=== PATIENT | male | born 2000 | race American Indian/Alaskan Native ===

== ENCOUNTER 2019-01-18 00:20 | Emergency (ER) | payer SELFPAY ==
[2019-01-18 00:39] VITALS: BP 164/80
[2019-01-18] MEDS ORDERED: DUONEB *Not for PRN Use IH ONE ×2 (00:41→00:46)
--- NOTE | 2019-01-18 01:37 | XRay Report ---
CHEST 2 VIEWS INDICATION / CLINICAL INFORMATION: Cough for 3 days. COMPARISON: None available. FINDINGS: SUPPORT DEVICES: None. HEART / MEDIASTINUM: The heart size and pulmonary vasculature are normal. LUNGS / PLEURA: No significant pulmonary or pleural abnormality. No pneumothorax. ADDITIONAL FINDINGS: No significant additional findings. IMPRESSION: No acute findings. Signer Name: Seng Kuhn MD Signed: 01/18/2019 1:33 AM Workstation Name: [id number]
[2019-01-18] MEDS ORDERED: DELTASONE PO ONE (01:55)
[2019-01-18] MEDS ORDERED: IBUPROFEN PO ONE (01:55)
--- NOTE | 2019-01-18 03:09 | Emergency Department Report ---
- General Chief Complaint: Adult Asthma Stated Complaint: ASTHMA TREATMENT Time Seen by Provider: 01/18/19 01:55 Source: patient Mode of arrival: Ambulatory Limitations: No Limitations - History of Present Illness Initial Comments: Patient is a 18-year-old male history of asthma and bronchitis who presents with shortness of breath cough wheezing 3 days states cough is productive yellow-green nocturnal fever and is no fever noted in triage today there is no wheezing or respiratory distress noted at this time patient states symptoms are exacerbated by environmental exposure relieved by albuterol inhaler but he is out of albuterol MD Complaint: fever, cough, rhinorrhea, nasal congestion Onset/Timin -: days(s) Severity: moderate Severity scale (0 -10): 4 Quality: sharp Consistency: intermittent Improves With: rest Worsens With: activity, other (environmental exposure ) Associated Symptoms: fever, chills, rhinorrhea, nasal congestion, cough, shortness of breath Treatments Prior to Arrival: none - Related Data Previous Rx's Medication Instructions Recorded Last Taken Type ALBUTEROL Inhaler (OR & NICU) 2 puff IH QID PRN #1 inhalation 01/18/19 Unknown Rx [ProAir HFA Inhaler] Azithromycin [Zithromax Z-CHAKA] 250 mg PO DAILY #6 tab 01/18/19 Unknown Rx Benzonatate [Tessalon Perles] 100 mg PO Q8HR #30 capsule 01/18/19 Unknown Rx Ibuprofen [Motrin 800 MG tab] 800 mg PO Q8HR PRN #30 tablet 01/18/19 Unknown Rx predniSONE [Deltasone] 40 mg PO QDAY 5 Days #10 tab 01/18/19 Unknown Rx Allergies Allergy/AdvReac Type Severity Reaction Status Date / Time No Known Allergies Allergy Verified 01/18/19 00:47 ED Review of Systems ROS: Stated complaint: ASTHMA TREATMENT Other details as noted in HPI Constitutional: denies: chills, fever Eyes: denies: eye pain, eye discharge, vision change ENT: denies: ear pain, throat pain Respiratory: cough, shortness of breath, wheezing Cardiovascular: denies: chest pain, palpitations Endocrine: no symptoms reported Gastrointestinal: denies: abdominal pain, nausea, diarrhea Genitourinary: denies: urgency, dysuria Musculoskeletal: denies: back pain, joint swelling, arthralgia Skin: denies: rash, lesions Neurological: denies: headache, weakness, paresthesias Psychiatric: denies: anxiety, depression Hematological/Lymphatic: denies: easy bleeding, easy bruising ED Past Medical Hx - Past Medical History Previous Medical History?: Yes Hx Asthma: Yes Additional medical history: Bronchitis - Surgical History Past Surgical History?: No - Social History Smoking Status: Never Smoker Substance Use Type: Marijuana - Medications Home Medications: Home Medications Medication Instructions Recorded Confirmed Last Taken Type ALBUTEROL Inhaler (OR & NICU) 2 puff IH QID PRN #1 inhalation 01/18/19 Unknown Rx [ProAir HFA Inhaler] Azithromycin [Zithromax Z-CHAKA] 250 mg PO DAILY #6 tab 01/18/19 Unknown Rx Benzonatate [Tessalon Perles] 100 mg PO Q8HR #30 capsule 01/18/19 Unknown Rx Ibuprofen [Motrin 800 MG tab] 800 mg PO Q8HR PRN #30 tablet 01/18/19 Unknown Rx predniSONE [Deltasone] 40 mg PO QDAY 5 Days #10 tab 01/18/19 Unknown Rx ED Physical Exam - General Limitations: No Limitations General appearance: alert, in no apparent distress - Head Head exam: Present: atraumatic, normocephalic - Eye Eye exam: Present: normal appearance, PERRL, EOMI Pupils: Present: normal accommodation - ENT ENT exam: Present: normal orophraynx, mucous membranes moist, TM's normal bilaterally, normal external ear exam - Neck Neck exam: Present: normal inspection, full ROM. Absent: tenderness, meningismus, lymphadenopathy, thyromegaly - Respiratory Respiratory exam: Present: normal lung sounds bilaterally. Absent: respiratory distress, wheezes, rales, rhonchi, stridor, chest wall tenderness (he) - Cardiovascular Cardiovascular Exam: Present: regular rate, normal rhythm, normal heart sounds. Absent: systolic murmur, diastolic murmur, rubs, gallop - GI/Abdominal GI/Abdominal exam: Present: soft, normal bowel sounds. Absent: distended, tenderness, guarding, rebound, rigid, bruit, hernia - Rectal Rectal exam: Present: deferred - Extremities Exam Extremities exam: Present: normal inspection, full ROM, normal capillary refill. Absent: tenderness, pedal edema, joint swelling, calf tenderness - Back Exam Back exam: Present: normal inspection, full ROM. Absent: tenderness, CVA tenderness (R), CVA tenderness (L), muscle spasm, paraspinal tenderness, rash noted - Neurological Exam Neurological exam: Present: alert, oriented X3, CN II-XII intact, normal gait - Psychiatric Psychiatric exam: Present: normal affect, normal mood - Skin Skin exam: Present: warm, dry, intact, normal color. Absent: rash ED Course Vital Signs 01/18/19 01/18/19 00:32 00:50 Temperature 98.6 F Pulse Rate 76 Respiratory 18 18 Rate Blood Pressure 164/80 O2 Sat by Pulse 98 97 Oximetry ED Medical Decision Making - Radiology Data Radiology results: report reviewed, image reviewed Ordering Physician: EVI CANDELARIO NP Date of Service: 01/18/19 Procedure(s): XR chest routine 2V Accession Number(s): [id number] cc: EVI CANDELARIO NP Fluoro Time In Minutes: CHEST 2 VIEWS INDICATION / CLINICAL INFORMATION: Cough for 3 days. COMPARISON: None available. FINDINGS: SUPPORT DEVICES: None. HEART / MEDIASTINUM: The heart size and pulmonary vasculature are normal. LUNGS / PLEURA: No significant pulmonary or pleural abnormality. No pneumothorax. ADDITIONAL FINDINGS: No significant additional findings. IMPRESSION: No acute findings. Signer Name: Seng Kuhn MD Signed: 01/18/2019 1:33 AM Workstation Name: [id number] Transcribed By: RT Dictated By: Seng Kuhn MD Electronically Authenticated By: Seng Kuhn MD Signed Date/Time: 01/18/19132 DD/ 9 TD/TT: - Medical Decision Making luns sound clear at this time vital signs stable cxr normal no infiltrates no opacities , plan refill abluterol , prednisone, ibuprofen, azithromycin, tessal on pearls follow up with pcp in 2-3 days return to ed if symptoms worsen. pt verbalized agreement and understanding of discharge plan Critical care attestation.: If time is entered above; I have spent that time in minutes in the direct care of this critically ill patient, excluding procedure time. ED Disposition Clinical Impression: Bronchitis Disposition: DC-01 TO HOME OR SELFCARE Is pt being admited?: No Does the pt Need Aspirin: No Condition: Stable Instructions: Chronic Bronchitis (ED) Prescriptions: predniSONE [Deltasone] 40 mg PO QDAY 5 Days #10 tab Ibuprofen [Motrin 800 MG tab] 800 mg PO Q8HR PRN #30 tablet PRN Reason: pain fever ALBUTEROL Inhaler (OR & NICU) [ProAir HFA Inhaler] 2 puff IH QID PRN #1 inhalation PRN Reason: Shortness Of Breath Benzonatate [Tessalon Perles] 100 mg PO Q8HR #30 capsule Azithromycin [Zithromax Z-CHAKA] 250 mg PO DAILY #6 tab Referrals: CJ FLORENTINO MD [Primary Care Provider] - 3-5 Days Forms: Work/School Release Form(ED) Time of Disposition: 03:20
== END 2019-01-18 03:25 | disposition home or self-care (01) ==
LOC: ED 00:20
DX: J45.909 Unspecified asthma, uncomplicated (principal); F12.10 Cannabis abuse, uncomplicated; Z79.1 Long term (current) use of non-steroidal anti-inflammatories (NSAID)
CPT/HCPCS: 71046; 94640; 99284; J7512